=== PATIENT | female | born 1960 ===

== ENCOUNTER 2021-06-23 03:07 | Inpatient (IN) | payer SELFPAY ==
[2021-06-23 03:21] VITALS: BMI 29.8
[2021-06-23] MEDS ORDERED: Calcium Carbonate 500 MG ChewTAB PO PRN (09:15)
[2021-06-23] MEDS ORDERED: Senokot S 8.6-50 MG TAB PO PRN (09:15)
[2021-06-23] MEDS ORDERED: Bisacodyl 5 MG TAB PO PRN (09:15)
[2021-06-23] MEDS ORDERED: Morphine 2 MG/ML VIAL SLOW IVP PRN (09:17)
[2021-06-23] MEDS ORDERED: Dexamethasone 10 MG/ML VIAL SLOW IVP SCH ×2 (09:30→15:00)
[2021-06-23] MEDS: Ondansetron PF 4 MG/2 ML Vial IVP PRN (10:04)
[2021-06-23] MEDS: GUAIFENESIN SF SOLN 200 MG/10 ML UDCUP PO PRN ×2 (10:04→20:23)
[2021-06-23] MEDS: Acetaminophen 325 MG TAB PO PRN ×2 (10:04→18:15)
[2021-06-23] MEDS ORDERED: Enoxaparin Sodium 40 MG/0.4 ML SYRINGE SC SCH (14:00)
[2021-06-23] MEDS ORDERED: GUAIFENESIN SF SOLN 200 MG/10 ML UDCUP PO SCH (14:09)
[2021-06-23] MEDS ORDERED: Calcium Carbonate 500 MG ChewTAB PO SCH (14:09)
[2021-06-23] MEDS ORDERED: cefTRIAXone\\ROCEPHIN 1 GM in Sodium Chloride 0.9% 100 ML IVPB SCH ×2 (15:00→20:00)
[2021-06-23] MEDS: Sodium Chloride 0.45% 1,000 ML IV SCH ×2 (20:23→20:45)
[2021-06-23] MEDS: Famotidine 20 MG TAB PO SCH (20:23)
[2021-06-23] MEDS ORDERED: Doxycycline 100 MG in Syringe 0 ML IVPB SCH (21:00)
[2021-06-23] MEDS: cefTRIAXone\\ROCEPHIN 1 GM in Sodium Chloride 0.9% 100 ML IVPB SCH (22:35)
[2021-06-24] MEDS ORDERED: cefTRIAXone\\ROCEPHIN 1 GM VIAL ONE (03:30)
[2021-06-24] MEDS: Sodium Chloride 0.45% 1,000 ML IV SCH ×2 (04:45→18:22)
[2021-06-24] MEDS: Dexamethasone 10 MG/ML VIAL SLOW IVP SCH (08:51)
[2021-06-24] MEDS: Enoxaparin Sodium 40 MG/0.4 ML SYRINGE SC SCH (08:51)
[2021-06-24 10:24] LABS: #Lymphocytes 0.6 thou/uL (1.20-3.40); #Monocytes 0.4 thou/uL (0.11-0.59); #Neutrophils 9.6 thou/uL (1.40-6.50); %Basophils 0.1 % (0.0-1.0); %Eosinophils 0.1 % (0.0-10.0); %Lymphocytes 5.7 % (21.0-51.0); %Monocytes 3.6 % (0.0-10.0); %Neutrophils 90.5 % (42.0-75.0); Hemoglobin 13.8 g/dL (12.0-16.0); Mean Corpuscular Volume 87.5 fL (78.0-98.0); Mean Platelet Volume 8.3 fL (7.4-10.4); Platelet Count 206 thou/uL (130-400); Red Blood Cell (RBC) Count 4.92 mill/uL (4.20-5.40); White Blood Cell (WBC) Count 10.6 thou/uL (4.8-10.8)
[2021-06-24 10:44] LABS: ALT (SGPT) 13 U/L (8-55); AST (SGOT) 45 U/L (5-34); Albumin 3.4 g/dL (3.4-4.8); Alkaline Phosphatase 55 U/L (40-110); Anion Gap 14 mmol/L (10-20); BUN (Urea Nitrogen) 24 mg/dL (9.8-20.1); Bilirubin, Total 0.4 mg/dL (0.2-1.2); Calc. Creatinine Clearance 88 mL/min (70-130); Calcium 8.5 mg/dL (7.8-10.44); Carbon Dioxide 25 mmol/L (23-31); Chloride 107 mmol/L (98-107); Globulin 2.5 g/dL (2.4-3.5); Glucose 116 mg/dL (80-115); Potassium 3.7 mmol/L (3.5-5.1); Protein, Total 5.9 g/dL (5.8-8.1); Sodium 142 mmol/L (136-145)
[2021-06-24] MEDS: Famotidine 20 MG TAB PO SCH ×2 (12:19→21:07)
[2021-06-24] MEDS: Cholecalciferol (Vitamin D3) 400 UNITS TAB PO SCH (12:19)
[2021-06-24] MEDS: Zinc Sulfate 220 MG CAP PO SCH (12:19)
[2021-06-24] MEDS: Ascorbic Acid 500 mg Chewable Tablet PO SCH (12:19)
[2021-06-24] MEDS ORDERED: Lorazepam 1 MG TAB PO SCH (12:47)
[2021-06-24] MEDS ORDERED: Iopamidol-370 76% 500 ML 1 ML ONE (15:21)
[2021-06-24] MEDS: Acetaminophen 325 MG TAB PO PRN (18:18)
[2021-06-24] MEDS: GUAIFENESIN SF SOLN 200 MG/10 ML UDCUP PO PRN (18:18)
[2021-06-24] MEDS: Escitalopram Oxalate 10 mg Tablet PO SCH (21:07)
[2021-06-24] MEDS: cefTRIAXone\\ROCEPHIN 1 GM in Sodium Chloride 0.9% 100 ML IVPB SCH (21:08)
[2021-06-25] MEDS: Sodium Chloride 0.45% 1,000 ML IV SCH (01:00)
[2021-06-25] MEDS: Lorazepam 1 MG TAB PO PRN ×2 (02:03→09:39)
[2021-06-25] MEDS: Ondansetron PF 4 MG/2 ML Vial IVP PRN (02:03)
[2021-06-25 05:42] LABS: #Lymphocytes 0.6 thou/uL (1.20-3.40); #Monocytes 0.6 thou/uL (0.11-0.59); #Neutrophils 10.5 thou/uL (1.40-6.50); %Basophils 0.1 % (0.0-1.0); %Eosinophils 0.1 % (0.0-10.0); %Lymphocytes 5.2 % (21.0-51.0); %Monocytes 4.8 % (0.0-10.0); %Neutrophils 89.8 % (42.0-75.0); Hemoglobin 13.6 g/dL (12.0-16.0); Mean Corpuscular HGB CONC 31.4 g/dL (32.0-36.0); Mean Corpuscular Hemoglobin 27.6 pg (27.0-31.0); Mean Corpuscular Volume 87.7 fL (78.0-98.0); Mean Platelet Volume 8.3 fL (7.4-10.4); Platelet Count 224 thou/uL (130-400); RBC Distribution Width 12.9 % (11.5-14.5); Red Blood Cell (RBC) Count 4.95 mill/uL (4.20-5.40); White Blood Cell (WBC) Count 11.7 thou/uL (4.8-10.8)
[2021-06-25 06:09] LABS: Anion Gap 12 mmol/L (10-20); BUN (Urea Nitrogen) 23 mg/dL (9.8-20.1); Calc. Creatinine Clearance 106 mL/min (70-130); Calcium 8.4 mg/dL (7.8-10.44); Carbon Dioxide 27 mmol/L (23-31); Chloride 107 mmol/L (98-107); Glucose 108 mg/dL (80-115); Potassium 4.2 mmol/L (3.5-5.1); Sodium 142 mmol/L (136-145)
[2021-06-25] MEDS: Dexamethasone 10 MG/ML VIAL SLOW IVP SCH (09:37)
[2021-06-25] MEDS: Enoxaparin Sodium 40 MG/0.4 ML SYRINGE SC SCH ×2 (09:37→21:20)
[2021-06-25] MEDS: Zinc Sulfate 220 MG CAP PO SCH (09:38)
[2021-06-25] MEDS: Famotidine 20 MG TAB PO SCH ×2 (09:38→21:20)
[2021-06-25] MEDS: Ascorbic Acid 500 mg Chewable Tablet PO SCH (09:38)
[2021-06-25] MEDS: Cholecalciferol (Vitamin D3) 400 UNITS TAB PO SCH (09:39)
[2021-06-25] MEDS ORDERED: Lorazepam 1 MG TAB PO PRN (10:58)
[2021-06-25] MEDS: Escitalopram Oxalate 10 mg Tablet PO SCH (21:20)
[2021-06-25] MEDS: cefTRIAXone\\ROCEPHIN 1 GM in Sodium Chloride 0.9% 100 ML IVPB SCH (22:48)
[2021-06-26 06:11] LABS: Band 5 % (5-11); Hemoglobin 12.6 g/dL (12.0-16.0); Lymphocytes 9 % (21-51); MDiff Complete? YES; Mean Corpuscular HGB CONC 31.7 g/dL (32.0-36.0); Mean Corpuscular Hemoglobin 27.7 pg (27.0-31.0); Mean Corpuscular Volume 87.3 fL (78.0-98.0); Mean Platelet Volume 8.1 fL (7.4-10.4); Neutrophil 86 % (42-75); Platelet Count 203 thou/uL (130-400); Platelet Morphology Comment Appears Adequate; RBC Distribution Width 12.7 % (11.5-14.5); RBC Morphology Normal; Red Blood Cell (RBC) Count 4.54 mill/uL (4.20-5.40); White Blood Cell (WBC) Count 8.1 thou/uL (4.8-10.8)
[2021-06-26 06:20] LABS: Anion Gap 12 mmol/L (10-20); BUN (Urea Nitrogen) 22 mg/dL (9.8-20.1); CRP (Inflammatory) 6.24 mg/dL (= or < 0.5); Calc. Creatinine Clearance 115 mL/min (70-130); Calcium 8.2 mg/dL (7.8-10.44); Carbon Dioxide 26 mmol/L (23-31); Chloride 108 mmol/L (98-107); Glucose 100 mg/dL (80-115); Potassium 4.2 mmol/L (3.5-5.1); Sodium 142 mmol/L (136-145)
[2021-06-26] MEDS: Cholecalciferol (Vitamin D3) 400 UNITS TAB PO SCH (09:16)
[2021-06-26] MEDS: Zinc Sulfate 220 MG CAP PO SCH (09:17)
[2021-06-26] MEDS: GUAIFENESIN SF SOLN 200 MG/10 ML UDCUP PO PRN ×2 (09:17→15:04)
[2021-06-26] MEDS: Enoxaparin Sodium 40 MG/0.4 ML SYRINGE SC SCH ×2 (09:17→20:12)
[2021-06-26] MEDS: Famotidine 20 MG TAB PO SCH ×2 (09:17→20:13)
[2021-06-26] MEDS: Ascorbic Acid 500 mg Chewable Tablet PO SCH (09:17)
[2021-06-26] MEDS: Lorazepam 0.5 MG TAB PO PRN (09:19)
[2021-06-26] MEDS: Dexamethasone 10 MG/ML VIAL SLOW IVP SCH (11:51)
[2021-06-26] MEDS ORDERED: BARICITINIB 2 MG TAB PO SCH (13:30)
[2021-06-26] MEDS ORDERED: Lidocaine Viscous Sol 2% 15 ml UD Cup SSP PRN (14:59)
[2021-06-26] MEDS: Nystatin 500,000 UNITS/5 ML UDCUP SSW SCH ×2 (16:13→20:13)
[2021-06-26] MEDS ORDERED: Nystatin 100,000 Units/mL UDCUP SSW SCH (17:00)
[2021-06-26] MEDS: Escitalopram Oxalate 10 mg Tablet PO SCH (20:12)
[2021-06-26] MEDS: cefTRIAXone\\ROCEPHIN 1 GM in Sodium Chloride 0.9% 100 ML IVPB SCH (21:30)
[2021-06-27 06:09] LABS: Anion Gap 13 mmol/L (10-20); BUN (Urea Nitrogen) 19 mg/dL (9.8-20.1); CRP (Inflammatory) 11.28 mg/dL (= or < 0.5); Calc. Creatinine Clearance 121 mL/min (70-130); Calcium 8.2 mg/dL (7.8-10.44); Carbon Dioxide 26 mmol/L (23-31); Chloride 106 mmol/L (98-107); Glucose 87 mg/dL (80-115); Potassium 4.3 mmol/L (3.5-5.1); Sodium 141 mmol/L (136-145)
[2021-06-27] MEDS: BARICITINIB 2 MG TAB PO SCH (09:30)
[2021-06-27] MEDS: Famotidine 20 MG TAB PO SCH ×2 (09:31→20:13)
[2021-06-27] MEDS: GUAIFENESIN SF SOLN 200 MG/10 ML UDCUP PO PRN (09:31)
[2021-06-27] MEDS: Nystatin 500,000 UNITS/5 ML UDCUP SSW SCH ×4 (09:31→21:32)
[2021-06-27] MEDS: Ascorbic Acid 500 mg Chewable Tablet PO SCH (09:31)
[2021-06-27] MEDS: Zinc Sulfate 220 MG CAP PO SCH (09:31)
[2021-06-27] MEDS: Cholecalciferol (Vitamin D3) 400 UNITS TAB PO SCH (09:31)
[2021-06-27] MEDS: Dexamethasone 10 MG/ML VIAL SLOW IVP SCH (09:32)
[2021-06-27] MEDS: Enoxaparin Sodium 40 MG/0.4 ML SYRINGE SC SCH ×2 (09:32→20:13)
[2021-06-27] MEDS: Lorazepam 0.5 MG TAB PO PRN (09:39)
[2021-06-27] MEDS ORDERED: Albuterol 200 PUFF (6.7GM INHALER) INH PRN (11:43)
[2021-06-27] MEDS: cefTRIAXone\\ROCEPHIN 1 GM in Sodium Chloride 0.9% 100 ML IVPB SCH (20:13)
[2021-06-27] MEDS: Escitalopram Oxalate 10 mg Tablet PO SCH (20:13)
[2021-06-28] MEDS: Acetaminophen 325 MG TAB PO PRN (05:59)
[2021-06-28] MEDS: Ondansetron PF 4 MG/2 ML Vial IVP PRN (06:01)
[2021-06-28 07:03] LABS: Anion Gap 16 mmol/L (10-20); BUN (Urea Nitrogen) 19 mg/dL (9.8-20.1); CRP (Inflammatory) 11.94 mg/dL (= or < 0.5); Calc. Creatinine Clearance 134 mL/min (70-130); Carbon Dioxide 23 mmol/L (23-31); Chloride 105 mmol/L (98-107); Glucose 73 mg/dL (80-115); Sodium 140 mmol/L (136-145)
[2021-06-28] MEDS: Lorazepam 0.5 MG TAB PO PRN (09:12)
[2021-06-28] MEDS: Famotidine 20 MG TAB PO SCH ×2 (09:13→20:32)
[2021-06-28] MEDS: BARICITINIB 2 MG TAB PO SCH (09:13)
[2021-06-28] MEDS: Ascorbic Acid 500 mg Chewable Tablet PO SCH (09:13)
[2021-06-28] MEDS: Zinc Sulfate 220 MG CAP PO SCH (09:13)
[2021-06-28] MEDS: Enoxaparin Sodium 40 MG/0.4 ML SYRINGE SC SCH ×2 (09:14→20:32)
[2021-06-28] MEDS: Cholecalciferol (Vitamin D3) 400 UNITS TAB PO SCH (09:14)
[2021-06-28] MEDS: Dexamethasone 10 MG/ML VIAL SLOW IVP SCH (09:14)
[2021-06-28] MEDS: GUAIFENESIN SF SOLN 200 MG/10 ML UDCUP PO PRN (09:15)
[2021-06-28] MEDS: Nystatin 500,000 UNITS/5 ML UDCUP SSW SCH ×4 (09:15→20:32)
[2021-06-28] MEDS ORDERED: Artificial Tear Sol 15 ML BOT EA EYE PRN (12:16)
[2021-06-28] MEDS ORDERED: Loratadine 10 MG TAB PO PRN (12:16)
[2021-06-28] MEDS ORDERED: Hydrocerin (Eucerin) Cream 120 gm Jar TOP PRN (12:16)
[2021-06-28] MEDS ORDERED: hydrALAZINE 20 MG/ML VIAL SLOW IVP PRN (12:16)
[2021-06-28] MEDS ORDERED: Ondansetron ODT 4 MG TAB SL PRN (12:16)
[2021-06-28] MEDS ORDERED: Cepastat Lozenges 1 LOZ PO PRN (12:16)
[2021-06-28] MEDS ORDERED: Zolpidem Tartrate 5 MG TAB PO PRN (12:16)
[2021-06-28] MEDS ORDERED: Loperamide HCl 2 MG CAP PO PRN (12:16)
[2021-06-28] MEDS ORDERED: Sodium Chloride 0.65% Nasal 44 ML BOT EA NARE PRN (12:16)
[2021-06-28] MEDS ORDERED: HYDROcodone/Acetaminophen 5/325 mg Tablet PO PRN (12:16)
[2021-06-28] MEDS ORDERED: Benzonatate 100 MG CAP PO PRN (12:16)
[2021-06-28] MEDS: Escitalopram Oxalate 10 mg Tablet PO SCH (20:32)
[2021-06-28] MEDS: cefTRIAXone\\ROCEPHIN 1 GM in Sodium Chloride 0.9% 100 ML IVPB SCH (21:15)
[2021-06-29 05:17] LABS: #Basophils 0.1 thou/uL (0.0-0.2); #Eosinphils 0.1 thou/uL (0.0-0.7); #Lymphocytes 0.8 thou/uL (1.20-3.40); #Monocytes 0.3 thou/uL (0.11-0.59); #Neutrophils 12.7 thou/uL (1.40-6.50); %Basophils 0.6 % (0.0-1.0); %Eosinophils 0.4 % (0.0-10.0); %Lymphocytes 5.6 % (21.0-51.0); %Monocytes 2.3 % (0.0-10.0); Hemoglobin 13.4 g/dL (12.0-16.0); Mean Corpuscular HGB CONC 31.9 g/dL (32.0-36.0); Mean Corpuscular Volume 87.7 fL (78.0-98.0); Mean Platelet Volume 7.8 fL (7.4-10.4); Platelet Count 282 thou/uL (130-400); RBC Distribution Width 12.3 % (11.5-14.5); Red Blood Cell (RBC) Count 4.77 mill/uL (4.20-5.40); White Blood Cell (WBC) Count 13.9 thou/uL (4.8-10.8)
[2021-06-29 05:35] LABS: ALT (SGPT) 24 U/L (8-55); AST (SGOT) 47 U/L (5-34); Albumin 2.9 g/dL (3.4-4.8); Alkaline Phosphatase 94 U/L (40-110); Bilirubin, Direct 0.3 mg/dL (0.1-0.3); Bilirubin, Total 0.5 mg/dL (0.2-1.2); Protein, Total 5.9 g/dL (5.8-8.1)
[2021-06-29 05:36] LABS: Anion Gap 12 mmol/L (10-20); BUN (Urea Nitrogen) 18 mg/dL (9.8-20.1); Calc. Creatinine Clearance 109 mL/min (70-130); Carbon Dioxide 28 mmol/L (23-31); Chloride 104 mmol/L (98-107); Potassium 4.2 mmol/L (3.5-5.1); Sodium 140 mmol/L (136-145)
[2021-06-29 05:37] LABS: ALT (SGPT) 24 U/L (8-55); AST (SGOT) 49 U/L (5-34); Albumin 2.8 g/dL (3.4-4.8); Alkaline Phosphatase 97 U/L (40-110); Bilirubin, Total 0.5 mg/dL (0.2-1.2); Calcium 8.4 mg/dL (7.8-10.44); Globulin 2.6 g/dL (2.4-3.5); Glucose 83 mg/dL (80-115); Protein, Total 5.4 g/dL (5.8-8.1)
[2021-06-29] MEDS: Zinc Sulfate 220 MG CAP PO SCH (09:32)
[2021-06-29] MEDS: Famotidine 20 MG TAB PO SCH ×2 (09:32→19:35)
[2021-06-29] MEDS: GUAIFENESIN SF SOLN 200 MG/10 ML UDCUP PO PRN (09:33)
[2021-06-29] MEDS: Nystatin 500,000 UNITS/5 ML UDCUP SSW SCH ×4 (09:33→19:34)
[2021-06-29] MEDS: Ascorbic Acid 500 mg Chewable Tablet PO SCH (09:33)
[2021-06-29] MEDS: Dexamethasone 10 MG/ML VIAL SLOW IVP SCH (09:33)
[2021-06-29] MEDS: BARICITINIB 2 MG TAB PO SCH (09:33)
[2021-06-29] MEDS: Enoxaparin Sodium 40 MG/0.4 ML SYRINGE SC SCH ×2 (09:33→19:33)
[2021-06-29] MEDS: Cholecalciferol (Vitamin D3) 400 UNITS TAB PO SCH (09:33)
[2021-06-29] MEDS: Acetaminophen 325 MG TAB PO PRN (09:48)
[2021-06-29] MEDS: Escitalopram Oxalate 10 mg Tablet PO SCH (19:35)
[2021-06-29] MEDS: cefTRIAXone\\ROCEPHIN 1 GM in Sodium Chloride 0.9% 100 ML IVPB SCH (22:11)
[2021-06-30 05:24] LABS: #Eosinphils 0.1 thou/uL (0.0-0.7); #Lymphocytes 0.6 thou/uL (1.20-3.40); #Monocytes 0.2 thou/uL (0.11-0.59); #Neutrophils 9.4 thou/uL (1.40-6.50); %Basophils 0.3 % (0.0-1.0); %Eosinophils 0.7 % (0.0-10.0); %Lymphocytes 5.4 % (21.0-51.0); %Monocytes 1.9 % (0.0-10.0); %Neutrophils 91.8 % (42.0-75.0); Hemoglobin 12.1 g/dL (12.0-16.0); Mean Corpuscular HGB CONC 32.1 g/dL (32.0-36.0); Mean Corpuscular Hemoglobin 28.1 pg (27.0-31.0); Mean Corpuscular Volume 87.6 fL (78.0-98.0); Platelet Count 301 thou/uL (130-400); RBC Distribution Width 12.2 % (11.5-14.5); Red Blood Cell (RBC) Count 4.31 mill/uL (4.20-5.40); White Blood Cell (WBC) Count 10.3 thou/uL (4.8-10.8)
[2021-06-30 05:43] LABS: Anion Gap 12 mmol/L (10-20); BUN (Urea Nitrogen) 19 mg/dL (9.8-20.1); CRP (Inflammatory) 22.36 mg/dL (= or < 0.5); Calc. Creatinine Clearance 117 mL/min (70-130); Calcium 8.3 mg/dL (7.8-10.44); Carbon Dioxide 27 mmol/L (23-31); Chloride 104 mmol/L (98-107); Glucose 103 mg/dL (80-115); Potassium 4.2 mmol/L (3.5-5.1); Sodium 139 mmol/L (136-145)
[2021-06-30] MEDS: Cholecalciferol (Vitamin D3) 400 UNITS TAB PO SCH (08:11)
[2021-06-30] MEDS: Zinc Sulfate 220 MG CAP PO SCH (08:11)
[2021-06-30] MEDS: Enoxaparin Sodium 40 MG/0.4 ML SYRINGE SC SCH ×2 (08:11→21:28)
[2021-06-30] MEDS: Famotidine 20 MG TAB PO SCH ×2 (08:11→21:28)
[2021-06-30] MEDS: Nystatin 500,000 UNITS/5 ML UDCUP SSW SCH ×4 (08:11→21:28)
[2021-06-30] MEDS: BARICITINIB 2 MG TAB PO SCH (08:11)
[2021-06-30] MEDS: Ascorbic Acid 500 mg Chewable Tablet PO SCH (08:11)
[2021-06-30] MEDS: Dexamethasone 10 MG/ML VIAL SLOW IVP SCH (10:30)
[2021-06-30] MEDS: Escitalopram Oxalate 10 mg Tablet PO SCH (21:28)
[2021-06-30] MEDS: cefTRIAXone\\ROCEPHIN 1 GM in Sodium Chloride 0.9% 100 ML IVPB SCH (21:28)
[2021-07-01] MEDS: Enoxaparin Sodium 40 MG/0.4 ML SYRINGE SC SCH ×2 (08:19→21:05)
[2021-07-01] MEDS: Cholecalciferol (Vitamin D3) 400 UNITS TAB PO SCH (08:20)
[2021-07-01] MEDS: Ascorbic Acid 500 mg Chewable Tablet PO SCH (08:20)
[2021-07-01] MEDS: BARICITINIB 2 MG TAB PO SCH (08:20)
[2021-07-01] MEDS: Nystatin 500,000 UNITS/5 ML UDCUP SSW SCH ×4 (08:20→21:05)
[2021-07-01] MEDS: Dexamethasone 10 MG/ML VIAL SLOW IVP SCH (08:20)
[2021-07-01] MEDS: Zinc Sulfate 220 MG CAP PO SCH (08:20)
[2021-07-01] MEDS: Famotidine 20 MG TAB PO SCH (08:20)
[2021-07-01] MEDS: Escitalopram Oxalate 10 mg Tablet PO SCH (21:05)
[2021-07-02 05:20] LABS: #Eosinphils 0.1 thou/uL (0.0-0.7); #Monocytes 0.3 thou/uL (0.11-0.59); %Basophils 0.1 % (0.0-1.0); %Lymphocytes 8.7 % (21.0-51.0); %Monocytes 2.3 % (0.0-10.0); %Neutrophils 87.9 % (42.0-75.0); Hemoglobin 13.4 g/dL (12.0-16.0); Mean Corpuscular HGB CONC 30.7 g/dL (32.0-36.0); Mean Corpuscular Hemoglobin 27.1 pg (27.0-31.0); Mean Corpuscular Volume 88.4 fL (78.0-98.0); Mean Platelet Volume 8.6 fL (7.4-10.4); Platelet Count 321 thou/uL (130-400); RBC Distribution Width 12.3 % (11.5-14.5); Red Blood Cell (RBC) Count 4.95 mill/uL (4.20-5.40); White Blood Cell (WBC) Count 11.3 thou/uL (4.8-10.8)
[2021-07-02 05:42] LABS: ALT (SGPT) 29 U/L (8-55); AST (SGOT) 40 U/L (5-34); Alkaline Phosphatase 91 U/L (40-110); Anion Gap 16 mmol/L (10-20); BUN (Urea Nitrogen) 17 mg/dL (9.8-20.1); Bilirubin, Total 0.5 mg/dL (0.2-1.2); Calc. Creatinine Clearance 104 mL/min (70-130); Calcium 8.6 mg/dL (7.8-10.44); Carbon Dioxide 24 mmol/L (23-31); Chloride 103 mmol/L (98-107); Globulin 2.9 g/dL (2.4-3.5); Glucose 117 mg/dL (80-115); Potassium 4.2 mmol/L (3.5-5.1); Protein, Total 5.9 g/dL (5.8-8.1); Sodium 139 mmol/L (136-145)
[2021-07-02] MEDS: Dexamethasone 10 MG/ML VIAL SLOW IVP SCH (07:59)
[2021-07-02] MEDS: Cholecalciferol (Vitamin D3) 400 UNITS TAB PO SCH (07:59)
[2021-07-02] MEDS: Enoxaparin Sodium 40 MG/0.4 ML SYRINGE SC SCH ×2 (07:59→20:37)
[2021-07-02] MEDS: BARICITINIB 2 MG TAB PO SCH (07:59)
[2021-07-02] MEDS: Ascorbic Acid 500 mg Chewable Tablet PO SCH (08:00)
[2021-07-02] MEDS: Zinc Sulfate 220 MG CAP PO SCH (08:00)
[2021-07-02] MEDS: Nystatin 500,000 UNITS/5 ML UDCUP SSW SCH ×4 (08:01→20:37)
[2021-07-02] MEDS: Escitalopram Oxalate 10 mg Tablet PO SCH (20:37)
[2021-07-03] MEDS: Cholecalciferol (Vitamin D3) 400 UNITS TAB PO SCH (08:53)
[2021-07-03] MEDS: Zinc Sulfate 220 MG CAP PO SCH (08:53)
[2021-07-03] MEDS: Ascorbic Acid 500 mg Chewable Tablet PO SCH (08:53)
[2021-07-03] MEDS: BARICITINIB 2 MG TAB PO SCH (08:53)
[2021-07-03] MEDS: Nystatin 500,000 UNITS/5 ML UDCUP SSW SCH ×4 (08:54→20:32)
[2021-07-03] MEDS: Enoxaparin Sodium 40 MG/0.4 ML SYRINGE SC SCH ×2 (08:54→20:27)
[2021-07-03] MEDS: Dexamethasone 10 MG/ML VIAL SLOW IVP SCH (08:54)
[2021-07-03] MEDS: Escitalopram Oxalate 10 mg Tablet PO SCH (20:31)
[2021-07-04 06:07] LABS: #Lymphocytes 1.2 thou/uL (1.20-3.40); #Monocytes 0.3 thou/uL (0.11-0.59); #Neutrophils 9.8 thou/uL (1.40-6.50); %Basophils 0.4 % (0.0-1.0); %Eosinophils 0.3 % (0.0-10.0); %Lymphocytes 10.6 % (21.0-51.0); %Monocytes 2.8 % (0.0-10.0); %Neutrophils 85.9 % (42.0-75.0); Hemoglobin 13.4 g/dL (12.0-16.0); Mean Corpuscular HGB CONC 31.1 g/dL (32.0-36.0); Mean Corpuscular Hemoglobin 27.3 pg (27.0-31.0); Mean Corpuscular Volume 87.8 fL (78.0-98.0); Mean Platelet Volume 8.1 fL (7.4-10.4); Platelet Count 462 thou/uL (130-400); RBC Distribution Width 12.4 % (11.5-14.5); Red Blood Cell (RBC) Count 4.89 mill/uL (4.20-5.40); White Blood Cell (WBC) Count 11.4 thou/uL (4.8-10.8)
[2021-07-04 06:28] LABS: ALT (SGPT) 28 U/L (8-55); AST (SGOT) 28 U/L (5-34); Albumin 3.1 g/dL (3.4-4.8); Alkaline Phosphatase 74 U/L (40-110); Anion Gap 11 mmol/L (10-20); BUN (Urea Nitrogen) 21 mg/dL (9.8-20.1); Bilirubin, Total 0.5 mg/dL (0.2-1.2); Calc. Creatinine Clearance 109 mL/min (70-130); Calcium 8.7 mg/dL (7.8-10.44); Carbon Dioxide 28 mmol/L (23-31); Chloride 104 mmol/L (98-107); Globulin 2.9 g/dL (2.4-3.5); Glucose 87 mg/dL (80-115); Potassium 4.3 mmol/L (3.5-5.1); Sodium 139 mmol/L (136-145)
[2021-07-04] MEDS: BARICITINIB 2 MG TAB PO SCH (08:29)
[2021-07-04] MEDS: Cholecalciferol (Vitamin D3) 400 UNITS TAB PO SCH (08:30)
[2021-07-04] MEDS: Enoxaparin Sodium 40 MG/0.4 ML SYRINGE SC SCH ×2 (08:30→20:32)
[2021-07-04] MEDS: Nystatin 500,000 UNITS/5 ML UDCUP SSW SCH ×4 (08:30→20:32)
[2021-07-04] MEDS: Zinc Sulfate 220 MG CAP PO SCH (08:30)
[2021-07-04] MEDS: Dexamethasone 10 MG/ML VIAL SLOW IVP SCH (08:32)
[2021-07-04] MEDS: Escitalopram Oxalate 10 mg Tablet PO SCH (20:32)
[2021-07-05] MEDS: Ascorbic Acid 500 mg Chewable Tablet PO SCH (08:10)
[2021-07-05] MEDS: Zinc Sulfate 220 MG CAP PO SCH (08:10)
[2021-07-05] MEDS: Nystatin 500,000 UNITS/5 ML UDCUP SSW SCH ×4 (08:10→20:44)
[2021-07-05] MEDS: BARICITINIB 2 MG TAB PO SCH (08:10)
[2021-07-05] MEDS: Cholecalciferol (Vitamin D3) 400 UNITS TAB PO SCH (08:10)
[2021-07-05] MEDS: Dexamethasone 10 MG/ML VIAL SLOW IVP SCH (08:10)
[2021-07-05] MEDS: Enoxaparin Sodium 40 MG/0.4 ML SYRINGE SC SCH ×2 (08:10→20:44)
[2021-07-05] MEDS: Escitalopram Oxalate 10 mg Tablet PO SCH (20:44)
[2021-07-06 05:52] LABS: #Lymphocytes 1.6 thou/uL (1.20-3.40); #Monocytes 0.4 thou/uL (0.11-0.59); #Neutrophils 8.9 thou/uL (1.40-6.50); %Eosinophils 0.4 % (0.0-10.0); %Lymphocytes 14.3 % (21.0-51.0); %Monocytes 3.8 % (0.0-10.0); %Neutrophils 81.5 % (42.0-75.0); Hemoglobin 12.7 g/dL (12.0-16.0); Mean Corpuscular HGB CONC 32.4 g/dL (32.0-36.0); Mean Corpuscular Hemoglobin 28.5 pg (27.0-31.0); Mean Corpuscular Volume 87.9 fL (78.0-98.0); Mean Platelet Volume 7.5 fL (7.4-10.4); Platelet Count 463 thou/uL (130-400); RBC Distribution Width 12.4 % (11.5-14.5); Red Blood Cell (RBC) Count 4.44 mill/uL (4.20-5.40); White Blood Cell (WBC) Count 10.9 thou/uL (4.8-10.8)
[2021-07-06 06:13] LABS: ALT (SGPT) 25 U/L (8-55); AST (SGOT) 22 U/L (5-34); Alkaline Phosphatase 62 U/L (40-110); Anion Gap 12 mmol/L (10-20); BUN (Urea Nitrogen) 24 mg/dL (9.8-20.1); Bilirubin, Total 0.4 mg/dL (0.2-1.2); CRP (Inflammatory) 1.32 mg/dL (= or < 0.5); Calc. Creatinine Clearance 99 mL/min (70-130); Calcium 8.5 mg/dL (7.8-10.44); Carbon Dioxide 29 mmol/L (23-31); Chloride 105 mmol/L (98-107); Globulin 2.6 g/dL (2.4-3.5); Glucose 89 mg/dL (80-115); Potassium 3.7 mmol/L (3.5-5.1); Protein, Total 5.6 g/dL (5.8-8.1); Sodium 142 mmol/L (136-145)
[2021-07-06] MEDS: BARICITINIB 2 MG TAB PO SCH (08:45)
[2021-07-06] MEDS: Ascorbic Acid 500 mg Chewable Tablet PO SCH (08:45)
[2021-07-06] MEDS: Aspirin 81 mg Enteric Coated Tablet PO SCH (08:45)
[2021-07-06] MEDS: Zinc Sulfate 220 MG CAP PO SCH (08:46)
[2021-07-06] MEDS: Dexamethasone 10 MG/ML VIAL SLOW IVP SCH (08:46)
[2021-07-06] MEDS: Enoxaparin Sodium 40 MG/0.4 ML SYRINGE SC SCH ×2 (08:46→20:05)
[2021-07-06] MEDS: Cholecalciferol (Vitamin D3) 400 UNITS TAB PO SCH (08:46)
[2021-07-06] MEDS: Nystatin 500,000 UNITS/5 ML UDCUP SSW SCH ×4 (08:46→20:06)
[2021-07-06 08:52] LABS: Magnesium 2.2 mg/dL (1.6-2.6); Phosphorus 3.2 mg/dL (2.3-4.7)
[2021-07-06] MEDS: Escitalopram Oxalate 10 mg Tablet PO SCH (20:05)
[2021-07-07] MEDS: Nystatin 500,000 UNITS/5 ML UDCUP SSW SCH ×5 (08:31→20:40)
[2021-07-07] MEDS: Aspirin 81 mg Enteric Coated Tablet PO SCH (08:32)
[2021-07-07] MEDS: BARICITINIB 2 MG TAB PO SCH (08:32)
[2021-07-07] MEDS: Cholecalciferol (Vitamin D3) 400 UNITS TAB PO SCH (08:32)
[2021-07-07] MEDS: Enoxaparin Sodium 40 MG/0.4 ML SYRINGE SC SCH ×2 (08:32→20:32)
[2021-07-07] MEDS: Dexamethasone 10 MG/ML VIAL SLOW IVP SCH (08:32)
[2021-07-07] MEDS: Zinc Sulfate 220 MG CAP PO SCH (08:32)
[2021-07-07] MEDS: Ascorbic Acid 500 mg Chewable Tablet PO SCH (08:32)
[2021-07-07] MEDS: Escitalopram Oxalate 10 mg Tablet PO SCH (20:32)
[2021-07-08] MEDS: Dexamethasone 4 MG TAB PO SCH (08:43)
[2021-07-08] MEDS: Cholecalciferol (Vitamin D3) 400 UNITS TAB PO SCH (08:44)
[2021-07-08] MEDS: Aspirin 81 mg Enteric Coated Tablet PO SCH (08:44)
[2021-07-08] MEDS: Ascorbic Acid 500 mg Chewable Tablet PO SCH (08:44)
[2021-07-08] MEDS: BARICITINIB 2 MG TAB PO SCH (08:44)
[2021-07-08] MEDS: Enoxaparin Sodium 40 MG/0.4 ML SYRINGE SC SCH (08:45)
[2021-07-08] MEDS: Zinc Sulfate 220 MG CAP PO SCH (08:45)
[2021-07-08] MEDS: Nystatin 500,000 UNITS/5 ML UDCUP SSW SCH ×4 (08:46→22:44)
[2021-07-08] MEDS: Escitalopram Oxalate 10 mg Tablet PO SCH (22:44)
[2021-07-09] MEDS: BARICITINIB 2 MG TAB PO SCH (08:36)
[2021-07-09] MEDS: Cholecalciferol (Vitamin D3) 400 UNITS TAB PO SCH (08:37)
[2021-07-09] MEDS: Dexamethasone 4 MG TAB PO SCH (08:37)
[2021-07-09] MEDS: Zinc Sulfate 220 MG CAP PO SCH (08:37)
[2021-07-09] MEDS: Ascorbic Acid 500 mg Chewable Tablet PO SCH (08:38)
[2021-07-09] MEDS: Aspirin 81 mg Enteric Coated Tablet PO SCH (08:38)
[2021-07-09] MEDS: Enoxaparin Sodium 40 MG/0.4 ML SYRINGE SC SCH (08:38)
[2021-07-09] MEDS: Nystatin 500,000 UNITS/5 ML UDCUP SSW SCH (08:39)
[2021-07-09] MEDS: Escitalopram Oxalate 10 mg Tablet PO SCH (21:19)
[2021-07-10] MEDS: Ascorbic Acid 500 mg Chewable Tablet PO SCH (08:46)
[2021-07-10] MEDS: Dexamethasone 4 MG TAB PO SCH (08:46)
[2021-07-10] MEDS: Aspirin 81 mg Enteric Coated Tablet PO SCH (08:46)
[2021-07-10] MEDS: Enoxaparin Sodium 40 MG/0.4 ML SYRINGE SC SCH (08:47)
[2021-07-10] MEDS: Cholecalciferol (Vitamin D3) 400 UNITS TAB PO SCH (08:47)
[2021-07-10] MEDS: Zinc Sulfate 220 MG CAP PO SCH (08:48)
[2021-07-10 16:53] VITALS: BP 107/64; TEMP 96.7
== END 2021-07-10 18:20 | disposition home or self-care (01) | DRG 177 ==
LOC: 2SW 03:07
PROVIDERS: ADMIT Student in an Organized Health Care Education/Training Program; ATTEND Family Medicine
PROC: 8E0ZXY6 Isolation (ICD-10-PCS; principal; 2021-06-23)
DX: U07.1 COVID-19 (principal); J12.82 Pneumonia due to coronavirus disease 2019; J96.01 Acute respiratory failure with hypoxia; E87.0 Hyperosmolality and hypernatremia; N17.9 Acute kidney failure, unspecified; B37.0 Candidal stomatitis; H81.03 Meniere's disease, bilateral; F32.9 Major depressive disorder, single episode, unspecified; D89.832 Cytokine release syndrome, grade 2; R74.01 Elevation of levels of liver transaminase levels; R53.81 Other malaise; F41.9 Anxiety disorder, unspecified; Z98.890 Other specified postprocedural states
CPT/HCPCS: 36415; 36416; 71045; 71046; 71275; 80048; 80053; 82728; 83735; 84100; 84484; 85025; 85379; 86140; J0696; J1100; J1650; J2405; J3490; J8540; Q9967